=== PATIENT | male | born 1990 | race Caucasian/White ===

== ENCOUNTER 2019-12-16 11:36 | Outpatient (CLI) | payer MEDICAID, SELFPAY ==
--- NOTE | 2019-12-16 16:00 | CT_ITS ---
WS: [id number] CT scan of the head, Clinical Data: headache Comparison: None. DLP: 992.[address] scans at [facility] use at least one of these dose optimization techniques: automat ed exposure control; mA and/or kV adjustment per patient size (includes targeted exams where dose is matched to clinical indication); or iterative reconstruction. Findings: The BB overlies possible cyst of the ethmoid sinuses which was actually present 10 years ago. The ventricular system is normal without shift. No recent infarct or hemorrhage is seen. There are no abnormal intracerebral masses. The cerebellum and brainstem are not remarkable. There is a small den sity in the subcutaneous tissue of the right frontal region which was actually present 10 years ago a nd is probably of no clinical significance. Bony windows of the skull and skull base show no fractures or erosions. The mastoid air cells, consulting intern al auditory canals, sella turcica and intraorbital contents are unremarkable. There is partial opacif ication of the ethmoid and maxillary sinuses CT/CT head wo con* [id number] Impression: 1. Small density in subcutaneous tissue overlying the right frontal lobe which was actually present 10 years ago. 2. Cyst of the anterior aspect of the right ethmoid sinus which was present 10 years ago and this underlies the BB
== END 2019-12-16 11:37 | disposition home or self-care (01) ==
LOC: RADWPI 11:43
PROVIDERS: Family Provider Nurse Practitioner Family; PCP Nurse Practitioner Family; Visit Provider Nurse Practitioner Family
DX: R51 Headache (principal); J34.1 Cyst and mucocele of nose and nasal sinus
CPT/HCPCS: 70450

== ENCOUNTER → 2020-09-08 09:04 | Outpatient (BNVA) | payer MEDICAID, SELFPAY | PROVIDERS: Family Provider Nurse Practitioner Family; PCP Nurse Practitioner Family; Visit Provider Nurse Practitioner Family | DX: Z85.72 Personal history of non-Hodgkin lymphomas (principal); Z13.220 Encounter for screening for lipoid disorders; G47.00 Insomnia, unspecified | CPT/HCPCS: 80053; 80061; 85025 ==

== ENCOUNTER → 2020-09-10 11:00 | Outpatient (BNVA) | payer MEDICAID, SELFPAY | PROVIDERS: Family Provider Nurse Practitioner Family; PCP Nurse Practitioner Family; Visit Provider Nurse Practitioner Family | DX: Z85.72 Personal history of non-Hodgkin lymphomas (principal); Z13.220 Encounter for screening for lipoid disorders; G47.00 Insomnia, unspecified; R53.83 Other fatigue | CPT/HCPCS: 84443 ==

== ENCOUNTER → 2021-10-24 13:22 | Outpatient (BNVA) | payer MEDICAID, SELFPAY | PROVIDERS: Family Provider Nurse Practitioner Family; PCP Nurse Practitioner Family; Visit Provider Nurse Practitioner Family | DX: E78.00 Pure hypercholesterolemia, unspecified (principal); E66.9 Obesity, unspecified; Z85.72 Personal history of non-Hodgkin lymphomas; Z86.69 Personal history of other diseases of the nervous system and sense organs | CPT/HCPCS: 80053; 80061; 84443 ==

== ENCOUNTER → 2022-01-04 10:26 | Outpatient (BNVA) | payer MEDICAID, SELFPAY | PROVIDERS: Family Provider Nurse Practitioner Family; PCP Nurse Practitioner Family; Visit Provider Nurse Practitioner Family | DX: Z00.00 Encounter for general adult medical examination without abnormal findings (principal); Z11.1 Encounter for screening for respiratory tuberculosis | CPT/HCPCS: 71046 ==

== ENCOUNTER → 2022-04-06 11:57 | Outpatient (BNVA) | payer MEDICAID, SELFPAY | PROVIDERS: Family Provider Nurse Practitioner Family; PCP Nurse Practitioner Family; Visit Provider Nurse Practitioner Family | DX: E66.01 Morbid (severe) obesity due to excess calories (principal); Z68.41 Body mass index [BMI] 40.0-44.9, adult; N18.2 Chronic kidney disease, stage 2 (mild); F43.10 Post-traumatic stress disorder, unspecified; G47.00 Insomnia, unspecified; E78.00 Pure hypercholesterolemia, unspecified; R94.4 Abnormal results of kidney function studies; R46.89 Other symptoms and signs involving appearance and behavior; R51.9 Headache, unspecified; M77.8 Other enthesopathies, not elsewhere classified; Z86.69 Personal history of other diseases of the nervous system and sense organs; Z23 Encounter for immunization; Z91.09 Other allergy status, other than to drugs and biological substances | CPT/HCPCS: 80053; 80061; 84443 ==

== ENCOUNTER → 2022-07-10 11:06 | Outpatient (BNVA) | payer MEDICAID, SELFPAY | PROVIDERS: Family Provider Nurse Practitioner Family; PCP Nurse Practitioner Family; Visit Provider Nurse Practitioner Family | DX: R94.4 Abnormal results of kidney function studies (principal); E78.5 Hyperlipidemia, unspecified; E66.01 Morbid (severe) obesity due to excess calories; Z68.41 Body mass index [BMI] 40.0-44.9, adult; N18.2 Chronic kidney disease, stage 2 (mild); Z86.69 Personal history of other diseases of the nervous system and sense organs; H10.13 Acute atopic conjunctivitis, bilateral; R46.89 Other symptoms and signs involving appearance and behavior; G47.00 Insomnia, unspecified; F43.10 Post-traumatic stress disorder, unspecified | CPT/HCPCS: 80053; 80061 ==

== ENCOUNTER → 2022-08-10 10:17 | Outpatient (BNVA) | payer MEDICAID, SELFPAY | PROVIDERS: Family Provider Nurse Practitioner Family; PCP Nurse Practitioner Family; Visit Provider Nurse Practitioner Family | DX: R19.7 Diarrhea, unspecified (principal); N50.9 Disorder of male genital organs, unspecified | CPT/HCPCS: 84402; 84403 ==

== ENCOUNTER → 2022-08-28 10:35 | Outpatient (BNVA) | payer MEDICAID, SELFPAY | PROVIDERS: Family Provider Nurse Practitioner Family; PCP Nurse Practitioner Family; Visit Provider Nurse Practitioner Family | DX: K29.70 Gastritis, unspecified, without bleeding (principal); R19.7 Diarrhea, unspecified | CPT/HCPCS: 87177; 87209; 87506 ==

== ENCOUNTER → 2022-09-04 13:04 | Outpatient (BNVA) | payer MEDICAID, SELFPAY | PROVIDERS: Family Provider Nurse Practitioner Family; PCP Nurse Practitioner Family; Visit Provider Nurse Practitioner Family | DX: Z91.09 Other allergy status, other than to drugs and biological substances (principal); Z11.1 Encounter for screening for respiratory tuberculosis; E78.5 Hyperlipidemia, unspecified; G47.00 Insomnia, unspecified; N18.2 Chronic kidney disease, stage 2 (mild); N50.9 Disorder of male genital organs, unspecified; Z00.00 Encounter for general adult medical examination without abnormal findings; R19.7 Diarrhea, unspecified | CPT/HCPCS: 80053; 80061 ==

== ENCOUNTER 2022-09-07 06:34 | Outpatient (CLI) | payer MEDICAID, SELFPAY ==
--- NOTE | 2022-09-07 06:30 | US_ITS ---
WS: [id number] TESTICULAR ULTRASOUND HISTORY: HX of childhood cancer recent change in size, denies pain COMPARISON: None available. TECHNIQUE: Real-time and color Doppler imaging or utilized to perform a testicular ultrasound. Right testicle: 3.8 cm x 2.4 cm x 2.4 cm. Normal size and echogenicity. No mass or torsion. Normal color Doppler is present throughout. Systolic and diastolic velocities are both present. Small hydrocele. Right epididymis: Normal epididymis with no increased vascularity. Left testicle: 3.4 cm x 1.9 cm x 2.3 cm. Normal size and echogenicity. No mass or torsion. Normal color Doppler is present throughout. Systolic and diastolic velocities are both present. Mild hydrocele. Left epididymis: Normal epididymis with no increased vascularity. US/US scrotum [id number] IMPRESSION: 1. No testicular mass or torsion. 2. Small bilateral hydroceles. 3. RIGHT testicle does measure slightly greater than the LEFT but no mass. Prob ably normal variation.
== END 2022-09-07 06:35 | disposition home or self-care (01) ==
LOC: RAD 06:35
PROVIDERS: PCP Nurse Practitioner Family; Visit Provider Nurse Practitioner Family
DX: N50.9 Disorder of male genital organs, unspecified (principal); N43.2 Other hydrocele
CPT/HCPCS: 76870; 84402; 84403

== ENCOUNTER → 2022-11-21 13:26 | Outpatient (BNVA) | payer MEDICAID, SELFPAY | PROVIDERS: PCP Nurse Practitioner Family; Visit Provider Podiatrist Foot & Ankle Surgery | DX: Q82.8 Other specified congenital malformations of skin (principal) | CPT/HCPCS: 17110 ==

== ENCOUNTER → 2022-11-29 15:54 | Outpatient (BNVA) | payer MEDICAID, SELFPAY | PROVIDERS: PCP Nurse Practitioner Family; Visit Provider Nurse Practitioner Family | DX: M25.512 Pain in left shoulder (principal) | CPT/HCPCS: 73030 ==

== ENCOUNTER 2022-12-16 18:06 | Emergency (ER) | payer MEDICAID, SELFPAY ==
[2022-12-16 18:12] VITALS: BP 125/80; PULSE 79; RESP 16; TEMP 36.4; O2SAT 94; BMI 41.5
[2022-12-16 18:30] LABS: Basophils % 0.4 %; Hematocrit 46.5 % (42.0-52.0); Hemoglobin 14.9 g/dL (11.7-16.6); Lymphocytes # 3.3 10^3/uL (0.8-4.8); Lymphocytes % 32.6 %; Mean Corpuscular Hemoglobin 25.9 pg (28.0-34.0); Mean Corpuscular Volume 80.7 fl (80-94); Mean Platelet Volume 9.2 fL (7.4-10.4); Monocytes # 0.9 10^3/uL (0.2-0.9); Monocytes % 9.2 %; Neutrophils # 5.89 10^3/uL (1.8-7.7); Neutrophils % 57.6 %; Nucleated Red Blood Cells % 0 %; Platelet Count 172 10^3/cmm (130-400); Red Blood Count 5.76 10^6/uL (4.1-5.3); Red Cell Distribution Width 15.4 % (12.1-15.1); White Blood Count 10.2 10^3/uL (4.0-10.0)
--- NOTE | 2022-12-16 18:39 | CTR_ITS ---
PROCEDURE INFORMATION: Exam: CT Abdomen And Pelvis Without Contrast Exam date and time: 12/16/2022 6:42 PM Age: 32 years old Clinical indication: Abdominal pain; Flank; Left; Additional info: L flank/abdominal pain TECHNIQUE: Imaging protocol: Computed tomography of the abdomen and pelvis without contrast. Radiation optimization: All CT scans at this facility use at least one of these dose optimization techniques: automated exposure control; mA and/or kV adjustment per patient size (includes targeted exams where dose is matched to clinical indication); or iterative reconstruction. REPORTING DATA: Count of CT and Cardiac NM exams in prior 12 months: This patient has received 0 known CTs and 0 known cardiac nuclear medicine studies in the 12 months prior to the current study. COMPARISON: none available. RADIATION DOSE METRICS: Total DLP (mGy-cm): 883.11 FINDINGS: Liver: Normal. No mass. Gallbladder and bile ducts: Normal. No calcified stones. No ductal dilation. Pancreas: Normal. No ductal dilation. Spleen: Normal. No splenomegaly. Adrenal glands: Normal. No mass. Kidneys and ureters: A small 16 mm slightly hyperdense lesion is present in the superior pole of the left kidney, which is indeterminate. Mild left hydronephrosis is noted with transition at the UPJ. No renal stone is visualized. The right kidney appears normal. Stomach and bowel: Unremarkable. No obstruction. No mucosal thickening. Appendix: The appendix is normal. Intraperitoneal space: Unremarkable. No free air. No significant fluid collection. Vasculature: Unremarkable. No abdominal aortic aneurysm. Lymph nodes: Unremarkable. No enlarged lymph nodes. Urinary bladder: Mild urinary bladder wall thickening is noted. Reproductive: Unremarkable as visualized. Bones/joints: Unremarkable. No acute fracture. Soft tissues: Unremarkable. CT/CT kidney stone [id number] IMPRESSION: 1. Left hydronephrosis with transition at the UPJ may be congenital. No renal stone is visualized. 2. Possible mild cystitis, correlate with urinalysis. 3. Indeterminate slightly hyperdense left renal lesion. Nonemergent ultrasound, or CT or MRI renal protocol may allow further assessment. COMMENTS: Consistent with the [employer] [place] [employer]'s Incidental Findings Committee white paper (J Am Aric Radiol 2018): Any incidental renal lesion less than 1 cm or classified as too small to characterize, or any incidental cystic renal lesion characterized as simple-appearing, is likely benign. No follow-up imaging is recommended for these lesions per consensus recommendations based on imaging criteria.
--- NOTE | 2022-12-16 18:40 | ED_ITS ---
HPI - Back Pain/Injury General: Chief Complaint: Abdominal Pain Stated Complaint: left flank pain Time Seen by Provider: 12/16/22 18:15 Source: patient and other (caregiver) Mode of arrival: ambulatory Limitations: no limitations History of Present Illness: Patient is a 32-year-old male who presents to ED today with a complaint of left- sided back pain that began fairly suddenly approximately an hour ago while he was seated at rest. Patient states the pain seems to radiate around into the left side of his abdomen. He states he feels nauseous but has not had any episodes of vomiting. No history of kidney or ureter stones. He is not having any urinary symptoms at this time. Bowel movements have been normal. No fevers. No hematuria. No recent lifting, twisting, straining injuries. MD elicited complaint: back pain Onset (ago): hour(s) Timing: constant Severity: moderate Similar Symptoms Previously: No Location: left flank Radiation: abdomen Exacerbating factors: none Relieving factors: none Associated symptoms: Reports abdominal pain and nausea; Deny chills, change in bowel habits, dysuria, fatigue, fever(s), urinary urgency or vomiting Work related injury: No Review of Systems Const: Denies: fever(s), chills, body aches, fatigue or malaise Card: Denies: chest pain Resp: Denies: dyspnea GI: Reports: abdominal pain and nausea; Denies: vomiting or change in bowel habits : Reports: flank pain; Denies: difficulty urinating, dysuria, urinary frequency, urinary urgency or uri nary hesitancy Musc: Reports: back pain (L flank); Denies: neck pain, extremity pain, extremity swelling, joint pain or joint swelling Skin/Breast: Denies: rash PFSH ED PFSH: Medical History Environmental allergies 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 Hx of non-Hodgkin's lymphoma Hx of seizure disorder Family History Grandfather Cancer Diabetes Grandmother Cancer Social History Smoking and tobacco status: former smoker Second hand smoke exposure: Yes Physical Exam Const: COMMON NORMALS: no acute distress, patient oriented x3, no limitations and alert GENERAL APPEARANCE: cooperative NUTRITIONAL APPEARANCE: obese ORIENTATION/CONSCIOUSNESS: Yes awake, Yes oriented to person, Yes oriented to place and Yes oriented to time Resp: COMMON NORMALS: normal respiratory effort and clear to auscultation bilaterally AUSCULTATION: clear to auscultation bilaterally Cardio: COMMON NORMALS: regular rate and regular rhythm RATE: regular rate RHYTHM: regular rhythm GI: COMMON NORMALS: Normal to inspection, nondistended, normoactive bowel sounds present, Soft to palpation, No hepatosplenomegaly present and no masses INSPECTION: Yes normal to inspection AUSCULTATION: Yes normoactive bowel sounds PALPATION: Yes Soft to palpation, Yes Tenderness to palpation present (GI) (L abdomen), No Guarding due to palpation present (GI), No Rigid due to palpation and Yes No hepatosplenomegaly present : BLADDER/KIDNEY EXAM: Yes CVA tenderness on the left Back/Pelvis: COMMON NORMALS: thoracic and lumbar spine normal to inspection, no thoracic nor lumbar tenderness and thoraco-lumbar ROM normal GENERAL BACK: Yes CVA tenderness Neuro: COMMON NORMALS: patient oriented x3 SENSORIUM/ORIENTATION: Yes alert, Yes oriented to person, Yes oriented to place and Yes oriented to time Course Vital Signs: Vital signs: Vital Signs Temperature 97.5 F L 12/16/22 18:12 Pulse Rate 79 12/16/22 18:12 Respiratory Rate 16 12/16/22 18:12 Blood Pressure 125/80 12/16/22 18:12 Pulse Oximetry 94 12/16/22 18:12 Oxygen Delivery Me thod Room Air 12/16/22 18:12 MDM - Back Pain/Injury Medical Decision Making Patient here for acute onset left flank pain radiating around into his abdomen beginning about an hour ago while at rest. Certainly history was suspicious for kidney/ureter lithiasis. Blood work did show a large amount of blood. CT renal imaging thus obtained and showing left hydronephrosis with transition at the UPJ that may be congenital. No renal stone was visualized however my suspicion is that he may have recently passed 1. They commented on mild cystitis with recommendation for urine analysis correlation. He has no UTI-like symptoms. Nitrates negative. Trace leuks. Will go ahead and culture. CT also commenting on an indeterminate left renal lesion that patient and caregiver were made aware of. This can be followed up on a nonemergent basis. Patient gained complete relief of his pain after IV Toradol. We will place him on 1 to 2 days of pain/nausea medications but I anticipate pain subsiding fairly quickly if he recently passed the stone. Labs 12/16/22 18:24 12/16/22 18:24 Radiology Impressions Abdomen/Pelvis CT 12/16/22 18:39 IMPRESSION: 1. Left hydronephrosis with transition at the UPJ may be congenital. No renal stone is visualized. 2. Possible mild cystitis, correlate with urinalysis. 3. Indeterminate slightly hyperdense left renal lesion. Nonemergent ultrasound, or CT or MRI renal protocol may allow further assessment. COMMENTS: Consistent with the [place]'s Incidental Findings Committee white paper (J Am Aric Radiol 2018): Any incidental renal lesion less than 1 cm or classified as too small to characterize, or any incidental cystic renal lesion characterized as simple-appearing, is likely benign. No follow-up imaging is recommended for these lesions per consensus recommendations based on imaging criteria. Laboratory Results WBC 10.2 10^3/uL (4.0-10.0) H 12/16/22 18:24 RBC 5.76 10^6/uL (4.1-5.3) H 12/16/22 18:24 Hgb 14.9 g/dL (11.7-16.6) 12/16/22 18:24 Hct 46.5 % (42.0-52.0) 12/16/22 18:24 MCV 80.7 fl (80-94) 12/16/22 18:24 MCH 25.9 pg (28.0-34.0) L 12/16/22 18:24 MCHC 32.0 g/dL (30.0-36.0) 12/16/22 18:24 RDW 15.4 % (12.1-15.1) H 12/16/22 18:24 Plt Count 172 10^3/cmm (130-400) 12/16/22 18:24 MPV 9.2 fL (7.4-10.4) 12/16/22 18:24 Neut % (Auto) 57.6 % 12/16/22 18:24 Lymph % (Auto) 32.6 % 12/16/22 18:24 [place] % (Auto) 9.2 % 12/16/22 18:24 Eos % (Auto) 0.0 % 12/16/22 18:24 Baso % (Auto) 0.4 % 12/16/22 18:24 Neut # (Auto) 5.89 10^3/uL (1.8-7.7) 12/16/22 18:24 Lymph # (Auto) 3.3 10^3/uL (0.8-4.8) 12/16/22 18:24 [place] # (Auto) 0.9 10^3/uL (0.2-0.9) 12/16/22 18:24 Eos # (Auto) 0.0 10^3/uL (0.0-0.8) 12/16/22 18:24 Baso # (Auto) 0.0 10^3/uL (0.0-0.1) 12/16/22 18:24 Nucleated RBC % (auto) 0 % 12/16/22 18:24 Nucleated RBCs # 0.0 /100WBC 12/16/22 18:24 Sodium 137 mmol/L (136-145) 12/16/22 18:24 Potassium 3.4 mmol/L (3.5-5.1) L 12/16/22 18:24 Chloride 107 mmol/L (98-107) 12/16/22 18:24 Carbon Dioxide 20 mmol/L (22-29) L 12/16/22 18:24 Anion Gap 13.4 (5-19) 12/16/22 18:24 BUN 12 mg/dL (6-20) 12/16/22 18:24 Creatinine 1.3 mg/dL (0.7-1.2) H 12/16/22 18:24 GFR Calculation 64.8 mL/min (90-130) L 12/16/22 18:24 Glucose 100 mg/dL (65-115) 12/16/22 18:24 Calculated Osmolality 284 mOsm/kg (285-295) L 12/16/22 18:24 Calcium 8.4 mg/dL (8.5-10.5) L 12/16/22 18:24 Total Bilirubin 0.3 mg/dL (0.15-1.2) 12/16/22 18:24 AST 17 U/L (0-40) 12/16/22 18:24 ALT 16 U/L (0-41) 12/16/22 18:24 Alkaline Phosphatase 117 U/L (40-130) 12/16/22 18:24 Total Protein 7.0 g/dL (6.6-8.7) 12/16/22 18:24 Albumin 4.1 g/dL (3.5-5.2) 12/16/22 18:24 Globulin 2.9 g/dL (1.3-4.6) 12/16/22 18:24 Urine Color Yellow (Yellow) 12/16/22 19:31 Urine Appearance Cloudy (CLEAR) A 12/16/22 19:31 Urine pH 6 (5-7) 12/16/22 19:31 Ur Specific [place] 1.020 (1.005-1.030) 12/16/22 19:31 Urine Protein 1+ (Negative) H 12/16/22 19:31 Urine Glucose (UA) Norm (Normal) 12/16/22 19:31 Urine Ketones Negative (Negative) 12/16/22 19:31 Urine Blood 3+ (Negative) H 12/16/22 19:31 Urine Nitrate Negative (Negative) 12/16/22 19:31 Urine Bilirubin 1+ (Negative) H 12/16/22 19:31 Urine Urobilinogen Norm mg/dL (Negative) 12/16/22 19:31 Ur Leukocyte Esterase Trace (Negative) H 12/16/22 19:31 Urine RBC >100 /hpf (0-2) H 12/16/22 19:31 Urine WBC 0-4 /hpf (0-5) H 12/16/22 19:31 Ur Squamous Epith Cells 0-4 /hpf (0-5) H 12/16/22 19:31 Amorphous Sediment Not Reportable 12/16/22 19:31 Urine Bacteria Trace /hpf (NONE) 12/16/22 19:31 Urine Mucus 1+ /hpf 12/16/22 19:31 Discharge Plan Discharge Patient Disposition: Home Clinical Impression: Acute left flank pain Condition: Stable Prescriptions: New ketorolac 10 mg tablet 10 mg PO Q8H PRN (Reason: pain) Qty: 7 0RF ondansetron 4 mg tablet,disintegrating 4 mg PO Q8H PRN (Reason: nausea and vomiting) Qty: 6 0RF No Action chlorpromazine 100 mg tablet 100 mg PO BID Clear Eyes Max Redness Relief 0.03-0.5 % drops 1 drp ophthalmic (eye) BID Qty: 15 11RF polymyxin B sulf-trimethoprim [Polytrim] 10,000 unit- 1 mg/mL drops 1 drp ophthalmic (eye) Q3H 7 Days Qty: 10 1RF Rx Instructions: while awake; do not exceed 6 doses in 24 hours topiramate 100 mg tablet 100 mg PO TID 30 Days Qty: 90 6RF trazodone 100 mg tablet 200 mg PO .hs 30 Days Qty: 60 6RF hydroxyzine pamoate 50 mg capsule 50 mg PO TID Qty: 90 6RF aripiprazole 30 mg tablet 15 mg PO BID 30 Days Qty: 30 6RF pantoprazole [Protonix] 40 mg tablet,delayed release (DR/EC) 40 mg PO DAILY 90 Days Qty: 90 1RF loperamide [Imodium A-D] 2 mg tablet 2 mg PO Q4H PRN (Reason: loose stool) Qty: 30 0RF Rx Instructions: administer after each loose stool until symptoms controlled; do not exceed 8 mg per 24 hrs promethazine-DM 6.25-15 mg/5 mL syrup 5 - 10 ml PO Q6H PRN (Reason: cough) Qty: 200 0RF cephalexin 500 mg capsule 500 mg PO TID 7 Days Qty: 21 0RF methylprednisolone [Medrol (Juan)] 4 mg tablets,dose pack See Rx Instructions PO PER PKG DIR Qty: 21 0RF Rx Instructions: PO PER PKG DIR albuterol sulfate [Ventolin HFA] 90 mcg/actuation HFA aerosol inhaler 2 puff inhalation 6XD PRN (Reason: shortness of breath or wheezing) Qty: 8.5 4RF [place] Complete Aerosol 2 spray intranasal QID PRN (Reason: nasal congestion) 30 Days Qty: 177 6RF acetaminophen [Tylenol Extra Strength] 500 mg tablet 1,000 mg PO Q6H PRN (Reason: fever or pain) Qty: 50 3RF Discharge Orders: Discharge ED (Routine); Ordered 12/16/22 Ordered By: Whitney Grier Referrals: Ann Greer NP [Primary Care Provider] - Coding Level of Care Code ED Strip Deburrer for Chg Fwd
[2022-12-16 18:51] LABS: Alanine Aminotransferase 16 U/L (0-41); Albumin Level 4.1 g/dL (3.5-5.2); Alkaline Phosphatase 117 U/L (40-130); Anion Gap 13.4 (5-19); Aspartate Amino Transferase 17 U/L (0-40); Blood Urea Nitrogen 12 mg/dL (6-20); Calcium 8.4 mg/dL (8.5-10.5); Carbon Dioxide 20 mmol/L (22-29); Chloride 107 mmol/L (98-107); Globulin 2.9 g/dL (1.3-4.6); Glomerular Filtration Rate 64.8 mL/min (90-130); Glucose 100 mg/dL (65-115); Osmolality Calculated 284 mOsm/kg (285-295); Potassium 3.4 mmol/L (3.5-5.1); Sodium 137 mmol/L (136-145); Total Bilirubin 0.3 mg/dL (0.15-1.2)
[2022-12-16] MEDS: ondansetron 2 mg/ML SDV 2 mL 4 MG IVP (19:20)
[2022-12-16] MEDS: sodium chloride 0.9% 1,000 ML 999 ML IV (19:20)
[2022-12-16] MEDS: ketorolac 60 mg/2 mL INJ 30 MG IVP (19:20)
[2022-12-16 20:00] LABS: Add Urine Microscopic? YES; Bilirubin Urine 1+ (Negative); Blood Urine 3+ (Negative); Glucose Urine UA Norm (Normal); Ketones Urine Negative (Negative); Leukocyte Esterase Urine Trace (Negative); Nitrate Urine Negative (Negative); Protein Urine 1+ (Negative); Urine Appearance Cloudy (CLEAR); Urine Color Yellow (Yellow); Urobilinogen Urine Norm (Negative); pH Urine 6 (5-7)
[2022-12-16 20:03] LABS: RBC Urine >100 /hpf (0-2); WBC Urine 0-4 /hpf (0-5)
[2022-12-16 20:04] LABS: Add Urine Culture? Yes; Bacteria Urine TRACE /hpf; Mucus Urine 1+ /hpf; Squamous Epithelial Cell Urine 0-4 /hpf (0-5)
== END 2022-12-16 20:59 | disposition home or self-care (01) ==
PROVIDERS: Emergency Provider Physician Assistant; PCP Nurse Practitioner Family
DX: R10.9 Unspecified abdominal pain (principal); N13.30 Unspecified hydronephrosis
CPT/HCPCS: 36415; 74176; 80053; 81001; 85025; 87086; 96361; 96374; 96375; 99285; J1885; J2405; J7030

== ENCOUNTER 2023-01-01 10:53 | Outpatient (CLI) | payer MEDICAID, SELFPAY ==
--- NOTE | 2023-01-01 11:00 | US_ITS ---
WS: [id number] ULTRASOUND RENAL TECHNIQUE: Ultrasound examination of both kidneys. CLINICAL INFORMATION: ABN CT of ABD and Pelvis, left renal lesion COMPARISON: CT December 16, 2022 FINDINGS: RIGHT: Right kidney is normal in size and appearance. Echogenicity: Normal. Cortical thickness: 1.2 cm; Normal. Hydronephrosis: None. Perinephric fluid: None. Right kidney measures: 10.3 cm x 5.3 cm x 4.9 cm. LEFT: LEFT upper pole renal cyst measuring 1.4 x 1.5 x 1.4 cm with through transmission corresponds t o the hyperdense LEFT renal lesion on the prior noncontrast CT. Small amount of internal echogenic de bris. Left kidney is normal in size and appearance. Echogenicity: Normal. Cortical thickness: 1.2 cm; Normal. Hydronephrosis: None. Perinephric fluid: None. Left kidney measures: 10.5 cm x 5.3 cm x 5.3 cm. Normal visualized aorta. Normal bladder. US/US renal BI* [id number] IMPRESSION: Technically difficult study due to body habitus. 1. No hydronephrosis in either kidney. 2. Slightly complex cyst LEFT kidney measuring 1.4 x1.5 cm with a small amount of internal debris 3. Normal bladder
== END 2023-01-01 10:54 | disposition home or self-care (01) ==
LOC: RAD 10:55
PROVIDERS: PCP Nurse Practitioner Family; Visit Provider Nurse Practitioner Family
DX: N28.1 Cyst of kidney, acquired (principal)
CPT/HCPCS: 76770

== ENCOUNTER → 2023-01-09 08:05 | Outpatient (BNVA) | payer MEDICAID, SELFPAY | PROVIDERS: PCP Nurse Practitioner Family; Visit Provider Podiatrist Foot & Ankle Surgery | DX: L85.1 Acquired keratosis [keratoderma] palmaris et plantaris (principal); Z85.72 Personal history of non-Hodgkin lymphomas | CPT/HCPCS: 17110 ==

== ENCOUNTER → 2023-01-15 10:57 | Outpatient (BNVA) | payer MEDICAID, SELFPAY | PROVIDERS: PCP Nurse Practitioner Family; Visit Provider Nurse Practitioner Family | DX: R11.0 Nausea (principal); T67.5XXA Heat exhaustion, unspecified, initial encounter; Y99.9 Unspecified external cause status | CPT/HCPCS: 80053 ==

== ENCOUNTER → 2023-01-29 13:37 | Outpatient (BNVA) | payer MEDICAID, SELFPAY | PROVIDERS: PCP Nurse Practitioner Family; Visit Provider Nurse Practitioner Family | DX: Z11.1 Encounter for screening for respiratory tuberculosis (principal) | CPT/HCPCS: 71046 ==

== ENCOUNTER → 2023-03-07 08:56 | Outpatient (BNVA) | payer MEDICAID, SELFPAY | PROVIDERS: PCP Nurse Practitioner Family; Visit Provider Podiatrist Foot & Ankle Surgery | DX: L84 Corns and callosities (principal); L85.1 Acquired keratosis [keratoderma] palmaris et plantaris | CPT/HCPCS: 99213 ==

== ENCOUNTER → 2023-07-24 11:14 | Outpatient (BNVA) | payer MEDICAID, SELFPAY | PROVIDERS: PCP Nurse Practitioner Family; Visit Provider Nurse Practitioner Family | DX: E66.01 Morbid (severe) obesity due to excess calories (principal); Z68.41 Body mass index [BMI] 40.0-44.9, adult; E78.5 Hyperlipidemia, unspecified; R19.7 Diarrhea, unspecified; G47.00 Insomnia, unspecified | CPT/HCPCS: 80053; 80061; 84443 ==

== ENCOUNTER 2023-11-01 17:46 | Emergency (ER) | payer MEDICAID, SELFPAY ==
[2023-11-01 17:49] VITALS: BP 126/87; PULSE 96; TEMP 36.6; O2SAT 97; BMI 41.7
--- NOTE | 2023-11-01 19:02 | ED_ITS ---
HPI - Head Injury General: Chief complaint: Head Injury Stated complaint: hit head Time Seen by Provider: 11/01/23 19:02 History of Present Illness: 33-year-old male patient that is in an a formerly [facility] residential care facility due to behavior and mental health issues comes in today after as he reports it becomes angry and hitting his head against the back of the wall. Patient is remorseful for his actions. Patient is cooperative. Patient is alert and oriented. I also note on initial evaluation he has a crusty lesions to the upper lip. Patient reports this occurs while shaving. Review of Systems General: Reports: 10 or more systems reviewed and unremarkable except in HPI and below PFSH ED PFSH: Medical History Hx of non-Hodgkin's lymphoma Hx of seizure disorder Environmental allergies 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 Family History Grandfather Cancer Diabetes Grandmother Cancer Social History Smoking and tobacco/nicotine status: former use of tobacco/nicotine Second hand smoke exposure: Yes Physical Exam Const: COMMON NORMALS: alert HENMT: COMMON NORMALS: Normal external nose present HEAD & SCALP: contusion (Occipital scalp superficial) and other FACE & SINUS: other (Crusted lesions perioral nasal area) NOSE: Normal external nose present Neck/C-Spine: COMMON NORMALS: full ROM CERVICAL SPINE: No Cervical spine tenderness Resp: COMMON NORMALS: normal respiratory effort Cardio: COMMON NORMALS: regular rate RATE: regular rate Back/Pelvis: COMMON NORMALS: thoracic and lumbar spine normal to inspection Neuro: SENSORIUM/ORIENTATION: Yes alert Skin: COMMON NORMALS: turgor normal GENERAL SKIN EXAM: turgor normal Course Vital Signs: Vital signs: Vital Signs Temperature 97.8 F 11/01/23 17:49 Pulse Rate 96 11/01/23 17:49 Blood Pressure 126/87 11/01/23 17:49 Pulse Oximetry 97 11/01/23 17:49 Oxygen Delivery Me thod Room Air 11/01/23 17:49 MDM - Head Injury Medcial Decision Making Patient presents today with complaints behavioral disorder and striking head against a wall. On exam patient has superficial bruising to the occipital sca lp. No crepitus or depression skull is noted. Pupils are equal and reactive. No focal neurodeficits. Vital signs are normal. Incidentally there is a crusted lesions to the upper lip and perioral area. Differential diagnosis includes skull fracture, intermittent explosive disorder, intracranial bleeding, contusion scalp, folliculitis, pseudofolliculitis, impetigo. Believe patient has some intermittent explosive disorder but there is no sign of significant head injury. Patient was redirected and was calm in the emergency room. Patient was released back to care of residential facility. Will treat patient's impetigo with some mupirocin ointment. Patient reports understanding. No radiology studies performed this visit Discharge Plan Discharge Patient Disposition: Home Clinical Impression: Behavior disturbance, Impetigo Contusion of head Qualifiers: Encounter type: initial encounter Contusion of head detail: scalp Qualified Code(s): S00.03XA - Contusion of scalp, initial encounter Condition: Stable Prescriptions: New mupirocin 2 % ointment 1 applic topical BID Qty: 22 0RF No Action chlorpromazine 100 mg tablet 50 mg PO TID Clear Eyes Max Redness Relief 0.03-0.5 % drops 1 drp ophthalmic (eye) BID Qty: 15 11RF aripiprazole 30 mg tablet 15 mg PO BID 30 Days Qty: 30 6RF ondansetron HCl 4 mg tablet 4 mg PO Q6H PRN (Reason: nausea and vomiting) Qty: 60 0RF [place] Complete Aerosol 2 spray intranasal QID PRN (Reason: nasal congestion) 30 Days Qty: 177 6RF promethazine-DM 6.25-15 mg/5 mL syrup 5 ml PO Q6H PRN (Reason: cough) Qty: 200 0RF acetaminophen [Tylenol Extra Strength] 500 mg tablet 1,000 mg PO Q6H 90 Days Qty: 240 1RF albuterol sulfate [Ventolin HFA] 90 mcg/actuation HFA aerosol inhaler 2 puff inhalation 6XD PRN (Reason: shortness of breath or wheezing) Qty: 8.5 4RF diphenhydramine HCl [Benadryl] 25 mg capsule 50 mg PO .QHS PRN (Reason: insomnia) Qty: 100 1RF Mucinex 1,200 mg tablet extended release 12hr 1,200 mg PO BID PRN (Reason: congestion or cough) Qty: 60 2RF hydroxyzine pamoate 50 mg capsule 50 mg PO TID Qty: 90 6RF levocetirizine 5 mg tablet See Rx Instructions .ROUTE .COMPLEX Qty: 30 2RF Dose Instruction: TAKE ONE TABLET BY MOUTH EVERY DAY Rx Instructions: TAKE ONE TABLET BY MOUTH EVERY DAY loperamide [Imodium A-D] 2 mg tablet 2 mg PO Q4H PRN (Reason: loose stool) Qty: 30 3RF Rx Instructions: administer after each loose stool until symptoms controlled; do not exceed 8 mg per 24 hrs topiramate 100 mg tablet 100 mg PO TID 30 Days Qty: 90 6RF trazodone 100 mg tablet 200 mg PO .hs 30 Days Qty: 60 6RF pantoprazole 40 mg tablet,delayed release (DR/EC) See Rx Instructions .ROUTE .COMPLEX Qty: 120 1RF Dose Instruction: TAKE ONE TABLET BY MOUTH EVERY DAY Rx Instructions: TAKE ONE TABLET BY MOUTH EVERY DAY calcium carbonate [Tums] 200 mg calcium (500 mg) tablet,chewable 200 mg PO QID PRN (Reason: dyspepsia) 90 Days Qty: 360 1RF paroxetine HCl 20 mg tablet 20 mg PO BID melatonin 3 mg tablet See Rx Instructions .ROUTE .COMPLEX Qty: 90 0RF Dose Instruction: take one tablet by MOUTH daily As Needed FOR SLEEP; CAN TAKE ALONG WITH TRAZADONE FOR SLEEP( DONT TAKE BENADRYL FOR SLEEP WHEN TAKING THIS)] Rx Instructions: take one tablet by MOUTH daily As Needed FOR SLEEP; CAN TAKE ALONG WITH TRAZADONE FOR SLEEP( DONT TAKE BENADRYL FOR SLEEP WHEN TAKING THIS)] ketorolac 10 mg tablet 10 mg PO Q8H PRN (Reason: pain) Qty: 7 0RF Discharge Orders: Discharge ED (Routine); Ordered 11/01/23 Ordered By: Rl Wasserman Referrals: Ann Greer NP [Primary Care Provider] - Discharge Diet: Usual diet Discharge Activity: Increase activity as tolerated Patient Instructions: Impetigo (ED), Head Injury (DC) Activity Restrictions/Additional Instructions: Use antibiotic ointment to the facial lesions until healed. Good handwashing. No sharing of towels. Activity as tolerated. Follow-up with primary care for further instructions. Return to ED for new concerns. Coding Level of Care Code ED Facilitator for Betty Tavera
[2023-11-01 19:32] VITALS: BP 131/83; PULSE 84; O2SAT 99
== END 2023-11-01 19:35 | disposition home or self-care (01) ==
PROVIDERS: Emergency Provider Nurse Practitioner Family; PCP Nurse Practitioner Family
DX: S00.03XA Contusion of scalp, initial encounter (principal); F91.9 Conduct disorder, unspecified; L01.00 Impetigo, unspecified; Z87.891 Personal history of nicotine dependence; Z85.72 Personal history of non-Hodgkin lymphomas; W22.8XXA Striking against or struck by other objects, initial encounter
CPT/HCPCS: 99283

== ENCOUNTER 2024-01-22 08:36 | Outpatient (CLI) | payer MEDICAID, SELFPAY ==
--- NOTE | 2024-01-22 08:41 | XR_ITS ---
WS: [id number] XR chest 2V* [id number] REASON FOR EXAM: Z11.1 - Encounter for screening for respiratory tuberculosis FINDINGS: The chest is unchanged compared to 02/15/2017. The heart and the mediastinum are within normal limits. Calcified granulomatous disease in both hilar regions and lower lobes. No acute or subacute pulmonary parenchymal or pleural abnormality. Mild levoscoliosis of the thoracic spine with moderate degenerative spondylosis in the lower thoracic spine. XR/XR chest 2V* [id number] IMPRESSION: No active disease identified.
== END 2024-01-22 08:37 | disposition home or self-care (01) ==
LOC: RAD 08:36
PROVIDERS: PCP Nurse Practitioner Family; Visit Provider Nurse Practitioner Family
DX: Z11.1 Encounter for screening for respiratory tuberculosis (principal); D71 Functional disorders of polymorphonuclear neutrophils; M41.84 Other forms of scoliosis, thoracic region; M47.814 Spondylosis without myelopathy or radiculopathy, thoracic region
CPT/HCPCS: 71046

== ENCOUNTER 2024-02-25 17:51 | Emergency (ER) | payer MEDICAID, SELFPAY ==
[2024-02-25 18:04] VITALS: BP 132/84; PULSE 95; RESP 18; TEMP 36.6; O2SAT 98
--- NOTE | 2024-02-25 18:22 | CTR_ITS ---
PROCEDURE INFORMATION: Exam: CT Abdomen And Pelvis Without Contrast Exam date and time: 02/25/2024 6:52 PM Age: 33 years old Clinical indication: Abdominal pain; Additional info: Left flank pain TECHNIQUE: Imaging protocol: Computed tomography of the abdomen and pelvis without contrast. Radiation optimization: All CT scans at this facility use at least one of these dose optimization techniques: automated exposure control; mA and/or kV adjustment per patient size (includes targeted exams where dose is matched to clinical indication); or iterative reconstruction. COMPARISON: CT kidney stone [id number] 12/16/2022 6:42 PM RADIATION DOSE METRICS: Total DLP (mGy-cm): 914 FINDINGS: Lungs: Lung bases are clear. No pleural effusion. Liver: Normal. No mass. Gallbladder and biliary ducts: Normal. No calcified stones. No ductal dilation. Pancreas: Normal. No ductal dilation. Spleen: Normal. No splenomegaly. Adrenal glands: Normal. No mass. Kidneys and ureters: There is a 3 mm stone lying in the upper portion of the left ureter. Mild hydronephrosis is noted. A 3 mm stone is also noted in the right ureterovesical junction but there is no evidence of significant right-sided hydronephrosis. Stomach and bowel: Unremarkable. No obstruction. No mucosal thickening. Appendix: No evidence of appendicitis. Intraperitoneal space: Unremarkable. No free air. No significant fluid collection. Vasculature: Unremarkable. No abdominal aortic aneurysm. Lymph nodes: Unremarkable. No enlarged lymph nodes. Urinary bladder: Unremarkable as visualized. Reproductive: Unremarkable as visualized. Bones/joints: Unremarkable. No acute fracture. Soft tissues: Unremarkable. CT/CT kidney stone [id number] IMPRESSION: 1. 3 mm left ureteral stone with mild hydronephrosis 2. 3 mm right ureterovesical junction stone with no evidence of hydronephrosis
--- NOTE | 2024-02-25 18:30 | ED_ITS ---
Documented by User: [email or web address] Linares 02/25/24 19:55 HPI - Abdominal Pain 2 General: Chief Complaint: Abdominal Pain Stated Complaint: Abdominal Pain Time Seen by Provider: 02/25/24 18:15 Source: patient Mode of arrival: ambulatory Limitations: no limitations History of Present Illness: Patient is a 33-year-old male presenting to the emergency department complaining of left flank pain onset 30 minutes prior to arrival. Reports history of kidney stones, states this does feel somewhat different. States it is worse with straining for a bowel movement. Not reporting any nausea, vomiting, urinary symptoms, abdominal pain, radiation of the pain, or other symptoms at this time. Has not taken anything for the pain. States he was riding in the car when it started. No history of GI surgeries. No blood in his stool. He states the pain is a 10/10 at this time and it feels sharp. His vitals are normal on arrival noted be afebrile and breathing comfortably on room air. MD elicited complaint: flank pain Pertinent past history: kidney stones Onset (ago): minute(s) (30) Pain Consistency: constant Location: L flank Severity: severe Pain scale (0-10): 10 Quality: sharp Radiation: none Migration to: no migration Exacerbating factors: bowel movement Relieving factors: nothing Associated Symptoms: Denies bloating, change in stool character, chills, constipation, diarrhea, dysuria, fever(s), hematochezia, nausea and vomiting Related Data Home Medications Medication Instructions Recorded Confirmed chlorpromazine 100 mg tablet 50 mg PO TID 09/25/23 02/27/24 paroxetine HCl 20 mg tablet 20 mg PO BID 09/25/23 02/27/24 Previous Rx's Medication Instructions Recorded aripiprazole 30 mg tablet 15 mg (1/2 x 30 mg) PO BID 30 days 07/10/22 #30 tabs naphazoline-glycerin 0.03 %-0.5 % 1 drp ophthalmic (eye) BID allergy 07/10/22 eye drops (Clear Eyes Maximum symptoms #15 mL Redness Relief) salt irrigation solution no.1 2 spray intranasal QID PRN nasal 09/04/22 ([place] Complete nasal spray) congestion 30 days #177 mL ketorolac 10 mg tablet 10 mg PO Q8H PRN pain #7 tabs 12/16/22 ondansetron HCl 4 mg tablet 4 mg PO Q6H PRN nausea and 01/15/23 vomiting #60 tabs promethazine-DM 6.25 mg-15 mg/5 mL 5 ml PO Q6H PRN cough #200 mL 02/07/23 oral syrup melatonin 3 mg tablet See Rx Instructions .Route 05/02/23 .COMPLEX #90 ea acetaminophen 500 mg tablet 1,000 mg (2 x 500 mg) PO Q6H fever 07/24/23 (Tylenol Extra Strength) or pain 90 days #240 tabs albuterol sulfate 90 mcg/actuation 2 puff inhalation 6XD PRN 07/24/23 aerosol inhaler (Ventolin HFA) shortness of breath or wheezing #8.5 grams calcium carbonate (Tums) 200 mg PO QID PRN dyspepsia 90 07/24/23 days #360 tabs diphenhydramine HCl 25 mg capsule 50 mg (2 x 25 mg) PO .QHS PRN 07/24/23 (Benadryl) insomnia #100 caps guaifenesin 1,200 mg tablet, 1,200 mg PO BID PRN congestion or 07/24/23 extended release 12 hr (Mucinex) cough #60 tabs hydroxyzine pamoate 50 mg capsule 50 mg PO TID #90 caps 07/24/23 levocetirizine 5 mg tablet See Rx Instructions .Route 07/24/23 .COMPLEX #30 tabs loperamide 2 mg tablet (Imodium 2 mg PO Q4H PRN loose stool #30 07/24/23 A-D) tabs pantoprazole 40 mg tablet,delayed See Rx Instructions .Route 07/24/23 release .COMPLEX #120 tabs topiramate 100 mg tablet 100 mg PO TID 30 days #90 tabs 07/24/23 trazodone 100 mg tablet 200 mg (2 x 100 mg) PO .hs 30 days 07/24/23 #60 tabs mupirocin 2 % topical ointment 1 applic topical BID #22 grams 11/01/23 bismuth subsalicylate 525 mg/15 mL 525 mg (15 mL) PO Q30M PRN 12/13/23 oral suspension (Stomach Relief) diarrhea #237 mL hydrocodone 7.5 mg-acetaminophen 1 tab PO Q8H PRN pain #10 tabs 02/25/24 325 mg tablet Allergies Allergy/AdvReac Type Severity Reaction Status Date / Time Sulfa (Sulfonamide Allergy unknown Verified 02/25/24 18:09 Antibiotics) Review of Systems 2 General: Reports: 10 or more systems reviewed and unremarkable except in HPI and below Const: Denies: fever(s), chills, change in appetite, change in weight or diaphoresis ENMT: Denies: throat pain or hoarseness Card: Denies: chest pain, palpitations or lightheadedness Resp: Denies: dyspnea, productive cough or wheezing GI: Denies: abdominal pain, nausea, vomiting, diarrhea, constipation, bloating, change in stool character or hematochezia : Reports: flank pain (Left); Denies: difficulty urinating, dysuria, urinary frequency or urinary urgency Musc: Denies: neck pain or back pain Skin/Breast: Denies: rash or new lesions Neuro: Denies: headache(s) or dizziness PFSH ED 2 PFSH: Medical History Hx of non-Hodgkin's lymphoma Hx of seizure disorder Environmental allergies 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 Family History Grandfather Cancer Diabetes Grandmother Cancer Social History Smoking and tobacco/nicotine status: never used tobacco/nicotine Second hand smoke exposure: Yes Physical Exam 2 Const: COMMON NORMALS: no acute distress, patient oriented x3, no limitations, alert and well nourished GENERAL APPEARANCE: cooperative and comfortable N UTRITIONAL APPEARANCE: obese ORIENTATION/CONSCIOUSNESS: Yes awake HENMT: COMMON NORMALS: normocephalic, atraumatic, hearing grossly normal bilaterally, external ears normal, Normal external nose present, Normal nasal mucous membranes and turbinates present and moist oral mucous membranes HEAD & SCALP: normocephalic and atraumatic NOSE: Normal external nose present and Normal nasal mucous membranes and turbinates present EXTERNAL EAR: Yes external ears normal Eye: COMMON NORMALS: Equal, round and reactive pupils present, EOMs intact bilaterally, conjunctivae normal and normal visual pinto by confrontation C ONJUNCTIVA: Yes conjunctivae normal PUPIL: Yes Equal, round and reactive pupils present Neck/C-Spine: COMMON NORMALS: full ROM, supple, no meningeal signs and no JVD Resp: COMMON NORMALS: normal respiratory effort, No retractions, No use of accessory muscles and clear to auscultation bilaterally AUSCULTATION: clear to auscultation bilaterally, no crackles, no rales, no rhonchi and no wheezes Cardio: COMMON NORMALS: no JVD, regular rate, regular rhythm, S1 normal heart sound present, S2 normal heart sound present, No gallops present (Cardio), No clicks present (Cardio), No murmurs present (Cardio), No rub (Cardio) and Peripheral pulses 2+ throughout RATE: regular rate RHYTHM: regular rhythm HEART SOUNDS: S1 normal heart sound present and S2 normal heart sound present PERIPHERAL PULSES: Peripheral pulses 2+ throughout GI: COMMON NORMALS: Normal to inspection, nondistended, normoactive bowel sounds present, Soft to palpation, non-tender, No hepatosplenomegaly present and no masses AUSCULTATION: Yes normoactive bowel sounds PALPATION: Yes Soft to palpation, No Guarding due to palpation present (GI), No Rigid due to palpation and Yes No hepatosplenomegaly present RECTAL EXAM: Yes deferred : COMMON NORMALS: Yes no CVA tenderness BLADDER/KIDNEY EXAM: Yes no CVA tenderness Back/Pelvis: COMMON NORMALS: no CVA tenderness Extremity: COMMON NORMALS: normal to inspection and full ROM Neuro: COMMON NORMALS: patient oriented x3, moves all extremities, no focal motor deficits and no sensory deficits noted SENSORIUM/ORIENTATION: Yes alert MENINGEAL SIGNS: Yes no meningeal signs Psych: COMMON NORMALS: mental status grossly normal, cooperative and speech normal SPEECH: Yes normal speech Skin: COMMON NORMALS: no rashes or lesions noted GENERAL SKIN EXAM: no rashes or lesions noted Course 2 Vital Signs: Vital signs: Vital Signs Temperature 97.8 F 02/25/24 18:04 Pulse Rate 81 02/25/24 20:03 Respiratory Rate 18 02/25/24 18:04 Blood Pressure 120/86 02/25/24 20:03 Pulse Oximetry 97 02/25/24 20:03 Oxygen Delivery Me thod Room Air 02/25/24 19:30 MDM - Abdominal Pain Medical Decision Making Patient presented with acute onset of left flank pain, reported history of kidney stones. Vitals are normal on arrival condition remained stable throughout ED course. Overall his examination was unremarkable, there was no significant reproducible tenderness to palpation in the CVA or abdomen. His blood work was unremarkable. A CT kidney stone did reveal signs of ureterolithiasis, specifically a 3 mm stone in the mid left ureter as well as a right ureteral stone also measuring 3 mm the right UVJ. Both of these small enough to pass in the room, will treat pain while he passes them. His urine did show quite a bit of blood, however no signs of infection. Pain is controlled upon recheck after given patient Toradol and started on fluids, he is instructed to drink plenty of fluids at home and return with any new or worsening symptoms. Lab Data 02/25/24 18:46 02/25/24 18:46 Labs/Radiology: Radiology Impressions Abdomen/Pelvis CT 02/25/24 18:22 IMPRESSION: 1. 3 mm left ureteral stone with mild hydronephrosis 2. 3 mm right ureterovesical junction stone with no evidence of hydronephrosis Laboratory Results WBC 9.40 10^3/uL (3.29-11.43) 02/25/24 18:46 RBC 5.40 10^6/uL (3.85-5.65) 02/25/24 18:46 Hgb 13.60 g/dL (11.27-16.99) 02/25/24 18:46 Hct 42.5 % (37-53) 02/25/24 18:46 MCV 78.7 fl (82-101) L 02/25/24 18:46 MCH 25.2 pg (27-33) L 02/25/24 18:46 MCHC 32.0 g/dL (30-55) 02/25/24 18:46 RDW 14.6 % (12.1-15.1) 02/25/24 18:46 Plt Count 201 10^3/cmm (157-399) 02/25/24 18:46 MPV 9.0 fL (7.4-10.4) 02/25/24 18:46 Neut % (Auto) 57.6 % 02/25/24 18:46 Lymph % (Auto) 32.9 % 02/25/24 18:46 Early % (Auto) 8.9 % 02/25/24 18:46 Eos % (Auto) 0.0 % 02/25/24 18:46 Baso % (Auto) 0.3 % 02/25/24 18:46 Neut # (Auto) 5.41 10^3/uL (1.8-7.7) 02/25/24 18:46 Lymph # (Auto) 3.1 10^3/uL (0.8-4.8) 02/25/24 18:46 Early # (Auto) 0.8 10^3/uL (0.2-0.9) 02/25/24 18:46 Eos # (Auto) 0.0 10^3/uL (0.0-0.8) 02/25/24 18:46 Baso # (Auto) 0.0 10^3/uL (0.0-0.1) 02/25/24 18:46 Nucleated RBC % (auto) 0 % 02/25/24 18:46 Nucleated RBCs # 0.0 /100WBC 02/25/24 18:46 Sodium 141 mmol/L (136-145) 02/25/24 18:46 Potassium 3.5 mmol/L (3.5-5.1) 02/25/24 18:46 Chloride 108 mmol/L (98-107) H 02/25/24 18:46 Carbon Dioxide 21 mmol/L (22-29) L 02/25/24 18:46 Anion Gap 15.5 (5-19) 02/25/24 18:46 BUN 13 mg/dL (6-20) 02/25/24 18:46 Creatinine 1.6 mg/dL (0.7-1.2) H 02/25/24 18:46 GFR Calculation 50.7 mL/min (90-130) L 02/25/24 18:46 Glucose 88 mg/dL (65-115) 02/25/24 18:46 Calculated Osmolality 292 mOsm/kg (285-295) 02/25/24 18:46 Calcium 8.7 mg/dL (8.5-10.5) 02/25/24 18:46 Total Bilirubin 0.3 mg/dL (0.15-1.2) 02/25/24 18:46 AST 22 U/L (0-40) 02/25/24 18:46 ALT 23 U/L (0-41) 02/25/24 18:46 Alkaline Phosphatase 112 U/L (40-130) 02/25/24 18:46 Total Protein 7.0 g/dL (6.6-8.7) 02/25/24 18:46 Albumin 4.5 g/dL (3.5-5.2) 02/25/24 18:46 Globulin 2.5 g/dL (1.3-4.6) 02/25/24 18:46 Lipase 28 U/L (13-60) 02/25/24 18:46 Urine Color Yellow (Yellow) 02/25/24 19:09 Urine Appearance Cloudy (CLEAR) A 02/25/24 19:09 Urine pH 5.5 (5-7) 02/25/24 19:09 Ur Specific [place] 1.027 (1.005-1.030) 02/25/24 19:09 Urine Protein 1+ (Negative) A 02/25/24 19:09 Urine Glucose (UA) Negative (Normal) 02/25/24 19:09 Urine Ketones Negative (Negative) 02/25/24 19:09 Urine Blood 3+ (Negative) A 02/25/24 19:09 Urine Nitrate Negative (Negative) 02/25/24 19:09 Urine Bilirubin Negative (Negative) 02/25/24 19:09 Urine Urobilinogen 1.0 mg/dL (Negative) 02/25/24 19:09 Ur Leukocyte Esterase Negative (Negative) 02/25/24 19:09 Urine RBC >100 /hpf (0-2) H 02/25/24 19:09 Urine WBC 6-10 /hpf (0-5) 02/25/24 19:09 Ur Squamous Epith Cells 0-5 /hpf (0-5) 02/25/24 19:09 Amorphous Sediment Not Reportable 02/25/24 19:09 Urine Bacteria None seen /hpf (NONE) 02/25/24 19:09 Hyaline Casts 4.95 /lpf 02/25/24 19:09 All radiology interpretation(s) finalized by discharge Discharge Plan Discharge Patient Disposition: Home Clinical Impression: Ureterolithiasis Condition: Stable Prescriptions: New hydrocodone-acetaminophen 7.5-325 mg tablet 1 tab PO Q8H PRN (Reason: pain) Qty: 10 0RF No Action chlorpromazine 100 mg tablet 50 mg PO TID Clear Eyes Max Redness Relief 0.03-0.5 % drops 1 drp ophthalmic (eye) BID Qty: 15 11RF aripiprazole 30 mg tablet 15 mg PO BID 30 Days Qty: 30 6RF ondansetron HCl 4 mg tablet 4 mg PO Q6H PRN (Reason: nausea and vomiting) Qty: 60 0RF [place] Complete Aerosol 2 spray intranasal QID PRN (Reason: nasal congestion) 30 Days Qty: 177 6RF promethazine-DM 6.25-15 mg/5 mL syrup 5 ml PO Q6H PRN (Reason: cough) Qty: 200 0RF acetaminophen [Tylenol Extra Strength] 500 mg tablet 1,000 mg PO Q6H 90 Days Qty: 240 1RF albuterol sulfate [Ventolin HFA] 90 mcg/actuation HFA aerosol inhaler 2 puff inhalation 6XD PRN (Reason: shortness of breath or wheezing) Qty: 8.5 4RF diphenhydramine HCl [Benadryl] 25 mg capsule 50 mg PO .QHS PRN (Reason: insomnia) Qty: 100 1RF Mucinex 1,200 mg tablet extended release 12hr 1,200 mg PO BID PRN (Reason: congestion or cough) Qty: 60 2RF hydroxyzine pamoate 50 mg capsule 50 mg PO TID Qty: 90 6RF levocetirizine 5 mg tablet See Rx Instructions .ROUTE .COMPLEX Qty: 30 2RF Dose Instruction: TAKE ONE TABLET BY MOUTH EVERY DAY Rx Instructions: TAKE ONE TABLET BY MOUTH EVERY DAY loperamide [Imodium A-D] 2 mg tablet 2 mg PO Q4H PRN (Reason: loose stool) Qty: 30 3RF Rx Instructions: administer after each loose stool until symptoms controlled; do not exceed 8 mg per 24 hrs topiramate 100 mg tablet 100 mg PO TID 30 Days Qty: 90 6RF trazodone 100 mg tablet 200 mg PO .hs 30 Days Qty: 60 6RF pantoprazole 40 mg tablet,delayed release (DR/EC) See Rx Instructions .ROUTE .COMPLEX Qty: 120 1RF Dose Instruction: TAKE ONE TABLET BY MOUTH EVERY DAY Rx Instructions: TAKE ONE TABLET BY MOUTH EVERY DAY calcium carbonate [Tums] 200 mg calcium (500 mg) tablet,chewable 200 mg PO QID PRN (Reason: dyspepsia) 90 Days Qty: 360 1RF paroxetine HCl 20 mg tablet 20 mg PO BID melatonin 3 mg tablet See Rx Instructions .ROUTE .COMPLEX Qty: 90 0RF Dose Instruction: take one tablet by MOUTH daily As Needed FOR SLEEP; CAN TAKE ALONG WITH TRAZADONE FOR SLEEP( DONT TAKE BENADRYL FOR SLEEP WHEN TAKING THIS)] Rx Instructions: take one tablet by MOUTH daily As Needed FOR SLEEP; CAN TAKE ALONG WITH TRAZADONE FOR SLEEP( DONT TAKE BENADRYL FOR SLEEP WHEN TAKING THIS)] Stomach Relief 525 mg/15 mL suspension 525 mg PO Q30M PRN (Reason: diarrhea) Qty: 237 3RF Rx Instructions: do not exceed 8 doses in a 24 hour period ketorolac 10 mg tablet 10 mg PO Q8H PRN (Reason: pain) Qty: 7 0RF mupirocin 2 % ointment 1 applic topical BID Qty: 22 0RF Discharge Orders: Discharge ED (Routine); Ordered 02/25/24 Ordered By: Geoffrey Guevara Referrals: Ruth Jamil FNP [Primary Care Provider] - Discharge Diet: As Directed Discharge Activity: Increase activity as tolerated Patient Instructions: Ureteral Stones (ED), Opioid Safety, Pain Management Activity Restrictions/Additional Instructions: Pain medications as prescribed. Drink plenty of fluids. Follow-up with your primary care provider. Return with any new or worsening symptoms. Stand Alone Forms: Work/School Release Coding Level of Care Code ED [employer] Professional for Chg Fwd Documented by User: James Paul DO 02/28/24 00:35 HPI - Abdominal Pain 2 General: Chief Complaint: Abdominal Pain Stated Complaint: Abdominal Pain Time Seen by Provider: 02/25/24 18:15 Related Data Home Medications Medication Instructions Recorded Confirmed chlorpromazine 100 mg tablet 50 mg PO TID 09/25/23 02/27/24 paroxetine HCl 20 mg tablet 20 mg PO BID 09/25/23 02/27/24 Previous Rx's Medication Instructions Recorded aripiprazole 30 mg tablet 15 mg (2 x 30 mg) PO BID 30 days 07/10/22 #30 tabs naphazoline-glycerin 0.03 %-0.5 % 1 drp ophthalmic (eye) BID allergy 07/10/22 eye drops (Clear Eyes Maximum symptoms #15 mL Redness Relief) salt irrigation solution no.1 2 spray intranasal QID PRN nasal 09/04/22 ([place] Complete nasal spray) congestion 30 days #177 mL ketorolac 10 mg tablet 10 mg PO Q8H PRN pain #7 tabs 12/16/22 ondansetron HCl 4 mg tablet 4 mg PO Q6H PRN nausea and 01/15/23 vomiting #60 tabs promethazine-DM 6.25 mg-15 mg/5 mL 5 ml PO Q6H PRN cough #200 mL 02/07/23 oral syrup melatonin 3 mg tablet See Rx Instructions .Route 05/02/23 .COMPLEX #90 ea acetaminophen 500 mg tablet 1,000 mg (2 x 500 mg) PO Q6H fever 07/24/23 (Tylenol Extra Strength) or pain 90 days #240 tabs albuterol sulfate 90 mcg/actuation 2 puff inhalation 6XD PRN 07/24/23 aerosol inhaler (Ventolin HFA) shortness of breath or wheezing #8.5 grams calcium carbonate (Tums) 200 mg PO QID PRN dyspepsia 90 07/24/23 days #360 tabs diphenhydramine HCl 25 mg capsule 50 mg (2 x 25 mg) PO .QHS PRN 07/24/23 (Benadryl) insomnia #100 caps guaifenesin 1,200 mg tablet, 1,200 mg PO BID PRN congestion or 07/24/23 extended release 12 hr (Mucinex) cough #60 tabs hydroxyzine pamoate 50 mg capsule 50 mg PO TID #90 caps 07/24/23 levocetirizine 5 mg tablet See Rx Instructions .Route 07/24/23 .COMPLEX #30 tabs loperamide 2 mg tablet (Imodium 2 mg PO Q4H PRN loose stool #30 07/24/23 A-D) tabs pantoprazole 40 mg tablet,delayed See Rx Instructions .Route 07/24/23 release .COMPLEX #120 tabs topiramate 100 mg tablet 100 mg PO TID 30 days #90 tabs 07/24/23 trazodone 100 mg tablet 200 mg (2 x 100 mg) PO .hs 30 days 07/24/23 #60 tabs mupirocin 2 % topical ointment 1 applic topical BID #22 grams 11/01/23 bismuth subsalicylate 525 mg/15 mL 525 mg (15 mL) PO Q30M PRN 12/13/23 oral suspension (Stomach Relief) diarrhea #237 mL hydrocodone 7.5 mg-acetaminophen 1 tab PO Q8H PRN pain #10 tabs 02/25/24 325 mg tablet Allergies Allergy/AdvReac Type Severity Reaction Status Date / Time Sulfa (Sulfonamide Allergy unknown Verified 02/25/24 18:09 Antibiotics) PFSH ED 2 PFSH: Medical History Hx of non-Hodgkin's lymphoma Hx of seizure disorder Environmental allergies 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 Family History Grandfather Cancer Diabetes Grandmother Cancer Social History Smoking and tobacco/nicotine status: never used tobacco/nicotine Second hand smoke exposure: Yes Course 2 Vital Signs: Vital signs: Vital Signs Temperature 97.8 F 02/25/24 18:04 Pulse Rate 81 02/25/24 20:03 Respiratory Rate 18 02/25/24 18:04 Blood Pressure 120/86 02/25/24 20:03 Pulse Oximetry 97 02/25/24 20:03 Oxygen Delivery Me thod Room Air 02/25/24 19:30 MDM - Abdominal Pain Medical Decision Making Patient presented with acute onset of left flank pain, reported history of kidney stones. Vitals are normal on arrival condition remained stable throughout ED course. Overall his examination was unremarkable, there was no significant reproducible tenderness to palpation in the CVA or abdomen. His blood work was unremarkable. A CT kidney stone did reveal signs of ureterolithiasis, specifically a 3 mm stone in the mid left ureter as well as a right ureteral stone also measuring 3 mm the right UVJ. Both of these small enough to pass in the room, will treat pain while he passes them. His urine did show quite a bit of blood, however no signs of infection. Pain is controlled upon recheck after given patient Toradol and started on fluids, he is instructed to drink plenty of fluids at home and return with any new or worsening symptoms. Chart reviewed Lab Data 02/25/24 18:46 02/25/24 18:46 Labs/Radiology: Radiology Impressions Abdomen/Pelvis CT 02/25/24 18:22 IMPRESSION: 1. 3 mm left ureteral stone with mild hydronephrosis 2. 3 mm right ureterovesical junction stone with no evidence of hydronephrosis Laboratory Results WBC 9.40 10^3/uL (3.29-11.43) 02/25/24 18:46 RBC 5.40 10^6/uL (3.85-5.65) 02/25/24 18:46 Hgb 13.60 g/dL (11.27-16.99) 02/25/24 18:46 Hct 42.5 % (37-53) 02/25/24 18:46 MCV 78.7 fl (82-101) L 02/25/24 18:46 MCH 25.2 pg (27-33) L 02/25/24 18:46 MCHC 32.0 g/dL (30-55) 02/25/24 18:46 RDW 14.6 % (12.1-15.1) 02/25/24 18:46 Plt Count 201 10^3/cmm (157-399) 02/25/24 18:46 MPV 9.0 fL (7.4-10.4) 02/25/24 18:46 Neut % (Auto) 57.6 % 02/25/24 18:46 Lymph % (Auto) 32.9 % 02/25/24 18:46 Early % (Auto) 8.9 % 02/25/24 18:46 Eos % (Auto) 0.0 % 02/25/24 18:46 Baso % (Auto) 0.3 % 02/25/24 18:46 Neut # (Auto) 5.41 10^3/uL (1.8-7.7) 02/25/24 18:46 Lymph # (Auto) 3.1 10^3/uL (0.8-4.8) 02/25/24 18:46 Early # (Auto) 0.8 10^3/uL (0.2-0.9) 02/25/24 18:46 Eos # (Auto) 0.0 10^3/uL (0.0-0.8) 02/25/24 18:46 Baso # (Auto) 0.0 10^3/uL (0.0-0.1) 02/25/24 18:46 Nucleated RBC % (auto) 0 % 02/25/24 18:46 Nucleated RBCs # 0.0 /100WBC 02/25/24 18:46 Sodium 141 mmol/L (136-145) 02/25/24 18:46 Potassium 3.5 mmol/L (3.5-5.1) 02/25/24 18:46 Chloride 108 mmol/L (98-107) H 02/25/24 18:46 Carbon Dioxide 21 mmol/L (22-29) L 02/25/24 18:46 Anion Gap 15.5 (5-19) 02/25/24 18:46 BUN 13 mg/dL (6-20) 02/25/24 18:46 Creatinine 1.6 mg/dL (0.7-1.2) H 02/25/24 18:46 GFR Calculation 50.7 mL/min (90-130) L 02/25/24 18:46 Glucose 88 mg/dL (65-115) 02/25/24 18:46 Calculated Osmolality 292 mOsm/kg (285-295) 02/25/24 18:46 Calcium 8.7 mg/dL (8.5-10.5) 02/25/24 18:46 Total Bilirubin 0.3 mg/dL (0.15-1.2) 02/25/24 18:46 AST 22 U/L (0-40) 02/25/24 18:46 ALT 23 U/L (0-41) 02/25/24 18:46 Alkaline Phosphatase 112 U/L (40-130) 02/25/24 18:46 Total Protein 7.0 g/dL (6.6-8.7) 02/25/24 18:46 Albumin 4.5 g/dL (3.5-5.2) 02/25/24 18:46 Globulin 2.5 g/dL (1.3-4.6) 02/25/24 18:46 Lipase 28 U/L (13-60) 02/25/24 18:46 Urine Color Yellow (Yellow) 02/25/24 19:09 Urine Appearance Cloudy (CLEAR) A 02/25/24 19:09 Urine pH 5.5 (5-7) 02/25/24 19:09 Ur Specific [place] 1.027 (1.005-1.030) 02/25/24 19:09 Urine Protein 1+ (Negative) A 02/25/24 19:09 Urine Glucose (UA) Negative (Normal) 02/25/24 19:09 Urine Ketones Negative (Negative) 02/25/24 19:09 Urine Blood 3+ (Negative) A 02/25/24 19:09 Urine Nitrate Negative (Negative) 02/25/24 19:09 Urine Bilirubin Negative (Negative) 02/25/24 19:09 Urine Urobilinogen 1.0 mg/dL (Negative) 02/25/24 19:09 Ur Leukocyte Esterase Negative (Negative) 02/25/24 19:09 Urine RBC >100 /hpf (0-2) H 02/25/24 19:09 Urine WBC 6-10 /hpf (0-5) 02/25/24 19:09 Ur Squamous Epith Cells 0-5 /hpf (0-5) 02/25/24 19:09 Amorphous Sediment Not Reportable 02/25/24 19:09 Urine Bacteria None seen /hpf (NONE) 02/25/24 19:09 Hyaline Casts 4.95 /lpf 02/25/24 19:09 Discharge Plan Discharge Patient Disposition: Home Clinical Impression: Ureterolithiasis Condition: Stable Prescriptions: New hydrocodone-acetaminophen 7.5-325 mg tablet 1 tab PO Q8H PRN (Reason: pain) Qty: 10 0RF No Action chlorpromazine 100 mg tablet 50 mg PO TID Clear Eyes Max Redness Relief 0.03-0.5 % drops 1 drp ophthalmic (eye) BID Qty: 15 11RF aripiprazole 30 mg tablet 15 mg PO BID 30 Days Qty: 30 6RF ondansetron HCl 4 mg tablet 4 mg PO Q6H PRN (Reason: nausea and vomiting) Qty: 60 0RF [place] Complete Aerosol 2 spray intranasal QID PRN (Reason: nasal congestion) 30 Days Qty: 177 6RF promethazine-DM 6.25-15 mg/5 mL syrup 5 ml PO Q6H PRN (Reason: cough) Qty: 200 0RF acetaminophen [Tylenol Extra Strength] 500 mg tablet 1,000 mg PO Q6H 90 Days Qty: 240 1RF albuterol sulfate [Ventolin HFA] 90 mcg/actuation HFA aerosol inhaler 2 puff inhalation 6XD PRN (Reason: shortness of breath or wheezing) Qty: 8.5 4RF diphenhydramine HCl [Benadryl] 25 mg capsule 50 mg PO .QHS PRN (Reason: insomnia) Qty: 100 1RF Mucinex 1,200 mg tablet extended release 12hr 1,200 mg PO BID PRN (Reason: congestion or cough) Qty: 60 2RF hydroxyzine pamoate 50 mg capsule 50 mg PO TID Qty: 90 6RF levocetirizine 5 mg tablet See Rx Instructions .ROUTE .COMPLEX Qty: 30 2RF Dose Instruction: TAKE ONE TABLET BY MOUTH EVERY DAY Rx Instructions: TAKE ONE TABLET BY MOUTH EVERY DAY loperamide [Imodium A-D] 2 mg tablet 2 mg PO Q4H PRN (Reason: loose stool) Qty: 30 3RF Rx Instructions: administer after each loose stool until symptoms controlled; do not exceed 8 mg per 24 hrs topiramate 100 mg tablet 100 mg PO TID 30 Days Qty: 90 6RF trazodone 100 mg tablet 200 mg PO .hs 30 Days Qty: 60 6RF pantoprazole 40 mg tablet,delayed release (DR/EC) See Rx Instructions .ROUTE .COMPLEX Qty: 120 1RF Dose Instruction: TAKE ONE TABLET BY MOUTH EVERY DAY Rx Instructions: TAKE ONE TABLET BY MOUTH EVERY DAY calcium carbonate [Tums] 200 mg calcium (500 mg) tablet,chewable 200 mg PO QID PRN (Reason: dyspepsia) 90 Days Qty: 360 1RF paroxetine HCl 20 mg tablet 20 mg PO BID melatonin 3 mg tablet See Rx Instructions .ROUTE .COMPLEX Qty: 90 0RF Dose Instruction: take one tablet by MOUTH daily As Needed FOR SLEEP; CAN TAKE ALONG WITH TRAZADONE FOR SLEEP( DONT TAKE BENADRYL FOR SLEEP WHEN TAKING THIS)] Rx Instructions: take one tablet by MOUTH daily As Needed FOR SLEEP; CAN TAKE ALONG WITH TRAZADONE FOR SLEEP( DONT TAKE BENADRYL FOR SLEEP WHEN TAKING THIS)] Stomach Relief 525 mg/15 mL suspension 525 mg PO Q30M PRN (Reason: diarrhea) Qty: 237 3RF Rx Instructions: do not exceed 8 doses in a 24 hour period ketorolac 10 mg tablet 10 mg PO Q8H PRN (Reason: pain) Qty: 7 0RF mupirocin 2 % ointment 1 applic topical BID Qty: 22 0RF Discharge Orders: Discharge ED (Routine); Ordered 02/25/24 Ordered By: Geoffrey Guevara Referrals: Ruth Jamil FNP [Primary Care Provider] - Discharge Diet: As Directed Discharge Activity: Increase activity as tolerated Patient Instructions: Ureteral Stones (ED), Opioid Safety, Pain Management Activity Restrictions/Additional Instructions: Pain medications as prescribed. Drink plenty of fluids. Follow-up with your primary care provider. Return with any new or worsening symptoms. 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
[2024-02-25] MEDS: sodium chloride 0.9% 1,000 ML 999 ML IV (18:49)
[2024-02-25] MEDS: ketorolac 60 mg/2 mL INJ 30 MG IVP (18:50)
[2024-02-25 18:58] LABS: Basophils % 0.3 %; Hematocrit 42.5 % (37-53); Lymphocytes # 3.1 10^3/uL (0.8-4.8); Lymphocytes % 32.9 %; Mean Corpuscular Hemoglobin 25.2 pg (27-33); Mean Corpuscular Volume 78.7 fl (82-101); Monocytes # 0.8 10^3/uL (0.2-0.9); Monocytes % 8.9 %; Neutrophils # 5.41 10^3/uL (1.8-7.7); Neutrophils % 57.6 %; Nucleated Red Blood Cells % 0 %; Platelet Count 201 10^3/cmm (157-399); Red Cell Distribution Width 14.6 % (12.1-15.1)
[2024-02-25 19:09] VITALS: BP 136/93; PULSE 89; O2SAT 96
[2024-02-25 19:17] LABS: Alanine Aminotransferase 23 U/L (0-41); Albumin Level 4.5 g/dL (3.5-5.2); Alkaline Phosphatase 112 U/L (40-130); Anion Gap 15.5 (5-19); Aspartate Amino Transferase 22 U/L (0-40); Blood Urea Nitrogen 13 mg/dL (6-20); Calcium 8.7 mg/dL (8.5-10.5); Carbon Dioxide 21 mmol/L (22-29); Chloride 108 mmol/L (98-107); Creatinine Clr Calc Pharmacy 73.8835; Globulin 2.5 g/dL (1.3-4.6); Glomerular Filtration Rate 50.7 mL/min (90-130); Glucose 88 mg/dL (65-115); Lipase 28 U/L (13-60); Osmolality Calculated 292 mOsm/kg (285-295); Potassium 3.5 mmol/L (3.5-5.1); Sodium 141 mmol/L (136-145); Total Bilirubin 0.3 mg/dL (0.15-1.2)
[2024-02-25 19:21] LABS: Charge for UA Resulting for Rev
[2024-02-25 19:30] VITALS: BP 150/114; PULSE 83; O2SAT 97
[2024-02-25 19:31] LABS: Bilirubin Urine Negative (Negative); Blood Urine 3+ (Negative); Glucose Urine UA Negative (Normal); Ketones Urine Negative (Negative); Leukocyte Esterase Urine Negative (Negative); Nitrate Urine Negative (Negative); Protein Urine 1+ (Negative); Specific Gravity, Urine 1.027 (1.005-1.030); Urine Appearance Cloudy (CLEAR); Urine Color Yellow (Yellow); pH Urine 5.5 (5-7)
[2024-02-25 19:40] LABS: Bacteria Urine None Seen /hpf; Hyaline Casts Urine 4.95 /lpf; RBC Urine >100 /hpf (0-2); Squamous Epithelial Cell Urine 0-5 /hpf (0-5)
[2024-02-25 19:42] LABS: Add Urine Culture? Yes
[2024-02-25 20:03] VITALS: BP 120/86; PULSE 81; O2SAT 97
== END 2024-02-25 20:05 | disposition home or self-care (01) ==
PROVIDERS: Emergency Provider Physician Assistant; PCP Nurse Practitioner Family
DX: N13.2 Hydronephrosis with renal and ureteral calculous obstruction (principal); Z85.72 Personal history of non-Hodgkin lymphomas; Z77.22 Contact with and (suspected) exposure to environmental tobacco smoke (acute) (chronic)
CPT/HCPCS: 74176; 80053; 81003; 81015; 83690; 85025; 87086; 96374; 99285; J1885; J7030

== ENCOUNTER 2024-03-07 18:16 | Emergency (ER) | payer MEDICAID, SELFPAY ==
[2024-03-07 18:25] VITALS: BP 125/81; PULSE 110; RESP 20; TEMP 36.7; O2SAT 99; BMI 42.7
[2024-03-07 18:34] VITALS: BP 125/73; PULSE 107; RESP 16; O2SAT 97
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
[2024-03-07 19:04] VITALS: BP 115/72; PULSE 104; O2SAT 97
[2024-03-07 19:57] VITALS: BP 105/67; PULSE 97; RESP 18; O2SAT 96
== END 2024-03-07 19:59 | disposition home or self-care (01) ==
PROVIDERS: Emergency Provider Physician Assistant; PCP Nurse Practitioner Family
DX: S00.33XA Contusion of nose, initial encounter (principal); S00.10XA Contusion of unspecified eyelid and periocular area, initial encounter; Z77.22 Contact with and (suspected) exposure to environmental tobacco smoke (acute) (chronic); Z85.72 Personal history of non-Hodgkin lymphomas; Y04.2XXA Assault by strike against or bumped into by another person, initial encounter
CPT/HCPCS: 70450; 70486; 72125; 99284

== ENCOUNTER → 2024-04-14 14:36 | Outpatient (BNVA) | payer MEDICAID, SELFPAY | PROVIDERS: PCP Nurse Practitioner Family; Visit Provider Nurse Practitioner Family | DX: M25.511 Pain in right shoulder (principal) | CPT/HCPCS: 73030 ==

== ENCOUNTER 2024-05-28 13:22 | Emergency (ER) | payer OTHER, SELFPAY ==
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
[2024-05-28 13:56] VITALS: BP 137/84; PULSE 102; TEMP 36.6; O2SAT 98; BMI 43.3
--- NOTE | 2024-05-28 16:03 | PC.PHAR ---
patient is using [facility]?
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
[2024-05-28 16:44] VITALS: BP 148/107; PULSE 88; O2SAT 96
== END 2024-05-28 16:45 | disposition home or self-care (01) ==
PROVIDERS: Emergency Provider Physician Assistant; PCP Nurse Practitioner Family
DX: S60.222A Contusion of left hand, initial encounter (principal); S70.01XA Contusion of right hip, initial encounter; S16.1XXA Strain of muscle, fascia and tendon at neck level, initial encounter; V89.2XXA Person injured in unspecified motor-vehicle accident, traffic, initial encounter
CPT/HCPCS: 73130; 73502; 99284

== ENCOUNTER 2024-06-02 10:52 | Outpatient (CLI) | payer MEDICAID, SELFPAY ==
--- NOTE | 2024-06-02 11:00 | MR_ITS ---
WS: [id number] MRI RIGHT SHOULDER HISTORY: M25.511 - Pain in right shoulder COMPARISON: None available. TECHNIQUE: Multiplanar sequences of the shoulder joint are submitted. Normal AC joint. No significant subacromial or subdeltoid bursal fluid. No subacromial impingement. N o os acromion. Biceps tendon in normal position in the bicipital groove. No rotator cuff muscle atrophy or edema. Mild tendinopathy in the distal supraspinatus tendon. No tea r. No increased signal in the axillary pouch. Normal coracohumeral ligament. Increased T2 signal exte nding through the base of the superior labrum. Signal does not curl along the glenoid as typically se en for normal variant. There is also slightly thicker than a normal variant. Suspicious for a small s uperior labral tear. The remaining labrum is negative. MR/MR shoulder RT wo con* [id number] IMPRESSION: 1. No rotator cuff tear or muscle atrophy. 2. Minimal tendinopathy in the distal supraspinatus. 3. No AC joint arthritis. 4. Focal superior labral tear. This does not have the configuration for normal variant which is typical in this location but is suspicious for labral tear. 5. No joint effusion.
== END 2024-06-02 10:53 | disposition home or self-care (01) ==
LOC: RAD 10:52
PROVIDERS: PCP Nurse Practitioner Family; Visit Provider Nurse Practitioner Family
DX: S43.431A Superior glenoid labrum lesion of right shoulder, initial encounter (principal); S49.91XA Unspecified injury of right shoulder and upper arm, initial encounter; M25.611 Stiffness of right shoulder, not elsewhere classified; X58.XXXA Exposure to other specified factors, initial encounter
CPT/HCPCS: 73221

== ENCOUNTER → 2024-06-18 08:55 | Outpatient (BNVA) | payer MEDICAID, SELFPAY | PROVIDERS: PCP Nurse Practitioner Family; Visit Provider Nurse Practitioner | DX: M25.511 Pain in right shoulder (principal); M67.911 Unspecified disorder of synovium and tendon, right shoulder | CPT/HCPCS: 73030; 99204 ==

== ENCOUNTER → 2024-08-13 09:40 | Outpatient (BNVA) | payer MEDICAID, SELFPAY | PROVIDERS: PCP Nurse Practitioner Family; Visit Provider Nurse Practitioner | DX: M67.911 Unspecified disorder of synovium and tendon, right shoulder (principal) | CPT/HCPCS: 99213 ==

== ENCOUNTER → 2024-08-27 13:07 | Outpatient (BNVA) | payer MEDICAID, SELFPAY | PROVIDERS: PCP Nurse Practitioner Family; Visit Provider Nurse Practitioner Family | DX: E78.2 Mixed hyperlipidemia (principal) | CPT/HCPCS: 80053; 80061; 83036; 84443; 85025 ==

== ENCOUNTER 2024-11-11 12:50 | Outpatient (CLI) | payer MEDICAID, SELFPAY | END 2024-11-11 12:51 | disposition home or self-care (01) | LOC: SLEEP 12:53 | PROVIDERS: PCP Nurse Practitioner Family; Visit Provider Nurse Practitioner Family | DX: G47.33 Obstructive sleep apnea (adult) (pediatric) (principal) | CPT/HCPCS: G0399 ==

== ENCOUNTER 2025-01-26 18:44 | Emergency (ER) | payer MEDICAID, SELFPAY ==
--- OUTSIDE RECORDS SUMMARY | 2018-12-30 08:29 | XMS_ITS | Continuity of Care Document ---
Author Organization [facility] Address [address] [id number] [address] Phone Care Team Providers Care Wreath And Garland Maker Name Role Phone Coordinator, Care Unavailable Unavailable Allergies, Adverse Reactions, Alerts Substance Reaction Status Criticality Sulfa (Sulfonamide Antibiotics) Active No Information WARNIN allergy(ies) could not be collected because the type is not supported. Please contact the source practice for further details. Medications Medication Instructions Dosage Effective Dates (start - stop) Status Comments multivitamin capsule - Activ e chlorpromazine 100 mg tablet - Active Mapap (acetaminophen) 500 mg capsule - Active TRAZODONE HCL (unknown strength) Not Available - Active NASONEX (unknown strength) Not Available - Active ABILIFY (unknown strength) Not Available - Active PATADAY (unknown strength) Not Available - Active HYDROXYZINE HCL (unknown strength) Not Available - Active TOPIRAMATE (unknown strength) take 1 capsule by oral route 2 times every day in the morning and evening Not Available - Active Problems Condition Type Effective Dates (start - stop) Clini lauren Status Comments No Known Problems Procedures Procedure Date Resin-Based Composite One Surface, Posterior Resin-Based Composite Two Surfaces, Posterior Resin-Based Composite Two Surfaces, Anterior EDR Approval Note Resin-Based Composite Three Surfaces, Posterior Resin-Based Composite Three Surfaces, Posterior Caries High Risk EDR Approval Note Prophylaxis Adult Periodic Oral Evaluation Established Patient Bitewings Four Films Intraoral Periapical First Film EDR Approval Note Resin-Based Composite Four Or More Surfaces Or I Resin-Based Composite Two Surfaces, Posterior Extraction, Erupted Tooth Or Exposed Khushi t (Elevati EDR Approval Note Resin-Based Composite Three Surfaces, Posterior Resin-Based Composite Three Surfaces, Posterior EDR Approval Note Resin-Based Composite Four Or More Surfaces Or I Resin-Based Composite Four Or More Surfaces Or I Resin-Based Composite Four Or More Surfaces Or I EDR Approval Note Removal Of Impacted Tooth Partially Bony Removal Of Impacted Tooth Completely Bony Removal Of Impacted Tooth Partially Bony Surgical Removal Of Erupted Tooth Requir ing Elevat Surgical Removal Of Erupted Tooth Requir ing Elevat Non-Intravenous Conscious Sedation EDR Approval Note Resin-Based Composite One Surface, Anterior Resin-Based Composite Three Surfaces, Posterior EDR Approval Note EDR Approval Note Comprehensive Oral Evaluatio n New Or Established Full Mouth Debridement To Enable Compreh ensive Elaine Prophylaxis Adult Limited Oral Evaluation Problem Focused EDR Approval Note EDR Approval Note Resin-Based Composite Four Or More Surfaces, Pos Resin-Based Composite One Surface, Anterior Resin-Based Composite Three Surfaces, Anterior Resin-Based Composite Four Or More Surfaces Or I EDR Approval Note Extraction, Erupted Tooth Or Exposed Khushi t (Elevati EDR Approval Note Resin-Based Composite Two Surfaces, Posterior Resin-Based Composite Three Surfaces, Posterior EDR Approval Note EDR Approval Note Bitewings Four Films Panoramic Film Intraoral Periapical First Film Intraoral Periapical Each Additional Film Intraoral Periapical Each Additional Film Intraoral Periapical Each Additional Film EDR Approval Note EDR Approval Note Limited Oral Evaluation Problem Focused Advance Directives Directive Yes / No Effective Date File Name No Information Encounters Encounter Description Practice Location Reason(s) For Visit Diagnoses Date Provider Providers Copied on Encounter [facility], [id number]- [place], [place], [id number], [place] tel:[phone] [facility] No Information 9 Coordinator Care. [address], [place], [address], [place]. tel:[phone] [facility], [id number]- [place], [id number], [place] tel:[phone] [facility] Encounter for dental exam and cleaning w/o abnormal findings 8 No Information [facility], [id number]- [place], [id number], [place] tel:[phone] [facility] Encounter for dental exam and cleaning w/o abnormal findings 8 No Information [facility], [id number], [id number], [place] tel:[phone] [facility] Encounter for dental exam and cleaning w/o abnormal findings 8 Mitesh Lazaro. [address] [place], [address], [place]. tel:[phone] Referring Provider: Tejas Ventura, [address] [place], [address]. tel:[phone] [facility], [id number]- [place], [place], [address], [place] tel:[phone] [facility] Encounter for dental exam and cleaning w/o abnormal findings 3 8 Mitesh Lazaro. [address] [place], [address], [place]. tel:[phone] Referring Provider: Tejas Ventura, [address] [place], [address]. tel:[phone] [facility], [id number]- [place], [id number], [place] tel:[phone] [facility] Encounter for dental exam and cleaning w/o abnormal findings 7 Pfaalvinenscara Royal. [address] [place], [address], [place]. tel:[phone] Referring Provider: Genny Hager, [address] [place], [address]. tel:[phone] [facility], [id number]- [place], [id number], [place] tel:[phone] [facility] Encounter for dental exam and cleaning w/o abnormal findings 2 7 No Information [facility], [id number]- [place], [id number], [place] tel:[phone] [facility] Encounter for dental exam and cleaning w/o abnormal findings 3 7 No Information [facility], [id number]- [place], [id number], [place] tel:[phone] [facility] Encounter for dental exam and cleaning w/o abnormal findings 2 7 Edward Royal. [address] [place], [address], [place]. tel:[phone] Referring Provider: Genny Hager, [address] [place], [address]. tel:[phone] [facility], [id number]- [place], [place], [id number], [place] tel:[phone] [facility] Encounter for dental exam and cleaning w/o abnormal findings 7 Mitesh Lazaro. [address] [place], [address], [place]. tel:[phone] Referring Provider: Tejas Ventura, [address] [place], [address]. tel:[phone] [facility], [id number]- [place], [id number], [place] tel:[phone] [facility] Encounter for dental exam and cleaning w/o abnormal findings 7 Mitesh Lazaro. [address] [place], [address], [place]. tel:[phone] Referring Provider: Tejas Ventura, [address] [place], [address]. tel:[phone] [facility], [id number]- [place], [address], [place] tel:[phone] [facility] Encounter for dental exam and cleaning w/o abnormal findings 7 No Information [facility], [id number]- [place], [place], [address], [place] tel:[phone] [facility] Encounter for dental exam and cleaning w/o abnormal findings 7 Mitesh Lazaro. [address] [place], [address], [place]. tel:[phone] Referring Provider: Tejas Ventura, [address] [place], [address]. tel:[phone] [facility], [id number]- [facility], [place], [place], [id number], [place] tel:[phone] [facility] Encounter for dental exam and cleaning w/o abnormal findings 7 Mitesh Lazaro. [address] [place], [address], [place]. tel:[phone] Referring Provider: Tejas Ventura, [address] [place], [address]. tel:[phone] Family History Family Member Type Diagnosis Age At Onset Maternal grandmother Problem (finding) Payers Payer name Insurance type Covered libertarian ID Authoriza tion(s) No Information Social History Type Description Quantity Date Captured Comments Alcohol Use Details Unknown Caffeine Use Details Unknown Tobacco Use Status No Information Smoking Status No Information Sex Male Gender Identity Male Chief Complaint And Reason For Visit No Information Reason For Referral Reason For Referral No Information History Of Present Illness Encounter Date Complaint History Of Prese nt Illness No Information Functional Status Date Functional Assessmen t No Information Instructions Date Instruction Additional Infor mation No Information Assessments Type Assessment Date No Information Patient Care Teams Name Effective Dates (start - stop) Status Members No Information
[2025-01-26 18:50] VITALS: BP 143/80; PULSE 100; RESP 16; TEMP 36.6; O2SAT 98
[2025-01-26 18:57] VITALS: BP 120/78; PULSE 102; O2SAT 95
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
[2025-01-26 19:05] VITALS: BP 118/72; PULSE 101; O2SAT 97
== END 2025-01-26 19:14 | disposition home or self-care (01) ==
PROVIDERS: Emergency Provider Emergency Medicine; PCP Nurse Practitioner Family
DX: S09.8XXA Other specified injuries of head, initial encounter (principal); Y04.2XXA Assault by strike against or bumped into by another person, initial encounter; Z85.72 Personal history of non-Hodgkin lymphomas
CPT/HCPCS: 99283; J9999

== ENCOUNTER 2025-03-17 19:55 | Outpatient (CLI) | payer MEDICAID, SELFPAY | END 2025-03-17 19:56 | disposition home or self-care (01) | LOC: SLEEP 19:56 | PROVIDERS: PCP Nurse Practitioner Family; Referring Provider Nurse Practitioner Family; Visit Provider Internal Medicine Pulmonary Disease | DX: G47.30 Sleep apnea, unspecified (principal) | CPT/HCPCS: 95811 ==

== ENCOUNTER → 2025-04-07 10:25 | Outpatient (BNVA) | payer MEDICAID, SELFPAY | PROVIDERS: PCP Nurse Practitioner Family; Visit Provider Nurse Practitioner Family | DX: Z11.1 Encounter for screening for respiratory tuberculosis (principal) | CPT/HCPCS: 71046 ==